=== PATIENT | female | born 1985 | race Hispanic/Latino ===

== ENCOUNTER 2016-11-15 13:10 | Emergency (ER) | payer OTHER ==
[~2016-11-15 13:10] MED LIST: CLEOCIN HCL300 MG PO; ENDOCET 325 MG-1 TA1 PO; ERYTHROMYCIN5 MG/GM OPH; IBUPROFEN800 MG PO; PERCOCET 325 MG1 TA2 PO; PRENATAL1 TA2 PO; [UNRECOGNIZED DRUG - REMARK] ED
[2016-11-15 13:51] VITALS: BP 115/64
== END 2016-11-15 14:30 | disposition admitted as inpatient to this hospital (09) ==
LOC: ERH 13:10
DX: R11.2 Nausea with vomiting, unspecified (principal); R19.7 Diarrhea, unspecified

== ENCOUNTER 2017-02-25 16:25 | Emergency (ER) | payer OTHER ==
[~2017-02-25] VITALS: Ht 167.6 cm; Wt 59.0 kg
[2017-02-25 16:57] LABS: ABSOLUTE BASOPHIL COUNT 0 /CUMM (0.0-0.2); ABSOLUTE EOSINOPHIL COUNT 0 /CUMM (0.0-0.7); ABSOLUTE GRANULOCYTE CT 5.5 /CUMM (1.4-6.5); ABSOLUTE LYMPH COUNT 1.3 /CUMM (1.2-3.4); ABSOLUTE MONOCYTE COUNT 0.5 /CUMM (0.10-0.60); BASOPHIL % 0.1 % (0.0-2.0); EOSINOPHIL % 0.6 % (0-5); GRANULOCYTE % 75.6 % (42.2-75.2); HEMATOCRIT 38.5 % (37-47); MEAN CORPUSCULAR HGB 29.4 PG (27.0-31.0); MEAN CORPUSCULAR HGB CONC 32.7 G/DL (33.0-37.0); MEAN PLATELET VOLUME 7.6 FL (7.4-10.4); PLATELET COUNT 191 /CUMM (130-400); RBC DISTRIBUTION WIDTH 13.8 % (11.5-14.5); RED BLOOD CELL CT 4.28 /CUMM (4.20-5.40); WHITE BLOOD CELL COUNT 7.3 /CUMM (4.8-10.8)
--- NOTE | 2017-02-25 17:44 | ED GI/GU/ABDOMINAL COMPLAINT ---
History of Present Illness General Chief Complaint: Abdominal Pain/Flank Pain Stated Complaint: ABD PAIN SINCE THIS AM Source: patient Exam Limitations: no limitations Vital Signs & Intake/Output Vital Signs & Intake/Output Vital Signs Date Time Temp Pulse Resp B/P Pulse O2 O2 Flow FiO2 Ox Delivery Rate 02/25 1830 70 18 122/55 98 Room Air 02/25 1634 98.3 92 18 115/62 99 Room Air Allergies Coded Allergies: cefazolin (HIVES 02/25/17) Reconcile Medications Ketorolac Tromethamine 10 MG TABLET 1 TAB PO TID PRN PAIN Multivitamin (Multi-Day Vitamins) 1 EACH TABLET 1 TAB PO DAILY SUPPLEMENT ( Reported) Ondansetron HCl (Zofran) 4 MG TABLET 1 TAB PO Q6-8P PRN NAUSEA Triage Note: COMPLAINS OF UPPER MID ABD PAIN SINCE THIS AM WITH NAUSEA. PAIN HAS BEEN CONSTANT. DENIES URINARY SYMPTOMS. COMPLAINS OF NAUSEA Triage Nurses Notes Reviewed? yes ? N Is pt currently ? No Onset: Abrupt Duration: waxing and waning Timing: single episode today Quality/Severity: sharpness, severe, stabbing Severity Numbers: 8 Location: left flank Radiation: back Activities at Onset: none HPI: Patient is a 32-year-old female with an unremarkable past medical history who presents emergency room stating that since this morning patient has been complaining of waxing and waning left-sided flank pain with radiation to her back. Patient hasn't taken any medications for symptoms. Patient has been able tolerate by mouth however is nauseous with no emesis. Denies any fever chills shortness of breath chest pain vaginal bleeding vaginal discharge dysuria hematuria. Last bowel movement was today no blood no melena noted. Denies any significant NSAID use or alcohol use ([place]) Past History Travel History Traveled to [place] past 21 day No Medical History Any Pertinent Medical History? 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 Psychosocial History What is your primary language Lithuanian Tobacco Use: Never used ETOH Use: denies use Illicit Drug Use: denies illicit drug use Family History Hx Contributory? No ([place]) Review of Systems Review of Systems Constitutional: Reports: no symptoms. EENTM: Reports: no symptoms. Respiratory: Reports: no symptoms. Cardiovascular: Reports: no symptoms. GI: Reports: see HPI, abdominal pain, nausea. Genitourinary: Reports: no symptoms. Musculoskeletal: Reports: see HPI, back pain. Skin: Reports: no symptoms. Neurological/Psychological: Reports: no symptoms. Hematologic/Endocrine: Reports: no symptoms. Immunologic/Allergic: Reports: no symptoms. All Other Systems: Reviewed and Negative ([place]) Physical Exam Physical Exam General Appearance: no apparent distress, alert, comfortable Gastrointestinal: normal bowel sounds, MILD LEFT FLANK POINT TENDERNESS Comments: Well-developed well-nourished person in no acute distress HEENT: Normal EENT exam, Neck: Supple, no lymphadenopathy, normal range of motion without pain or tenderness Back: Nontender, no CVA tenderness. Cardiovascular: Regular rate and rhythms no murmurs rubs or gallops, normal JVP Respiratory: Chest nontender. No respiratory distress.breath sounds clear to auscultation bilaterally Extremity: No edema, no calf tenderness to palpation, normal and equal pulses. Neuro: Alert oriented x3, motor sensory normal, Skin: No appreciable rash on exposed skin, skin is warm and dry. Psych: Mood and affect is normal, memory and judgment is normal. Core Measures ACS in differential dx? No Severe Sepsis Present: No Septic Shock Present: No ([place]) Progress Differential Diagnosis: AAA, AMI, appendicitis, biliary colic, bowel obstruction , colon cancer, cholecystitis, diverticulitis, ectopic , endometritis, esophageal varices, gastritis, hepatitis, hernia, hemorrhoids, ischemic bowel, inflamm bowel dis, intrauterine , kidney stone, Cecilia-Jaleesa tear, ovarian cyst, ovarian torsion, pancreatitis, PID/cervicitis, peptic ulcer, PUD/ GERD, perforated viscous, SBO, threatened AB, UTI/pyelo Plan of Care: Orders Procedure Date/time Status Add-on Test (ER Only) 02/25 1744 Active LIPASE 02/25 1645 Complete AMYLASE 02/25 1645 Complete URINE 02/25 1637 Complete URINALYSIS 02/25 1637 Complete COMPREHENSIVE METABOLIC PANEL 02/25 1637 Complete CBC WITHOUT DIFFERENTIAL 02/25 1637 Complete Laboratory Tests 02/25/17 1650: Urinalysis LIGHT H, Urine Color YEL, Urine Clarity HAZY H, Urine pH 6.0, Ur Specific [place] 1.025, Urine Protein NEG, Urine Ketones NEG, Urine Nitrite NEG, Urine Bilirubin NEG, Urine Urobilinogen 0.2, Ur Leukocyte Esterase NEG, Ur Microscopic SEDIMENT EXAMINED, Urine RBC RARE, Urine WBC 1-3 H, Ur Epithelial Cells MOD H, Urine Bacteria MOD H, Urine Mucus FEW, Urine Hemoglobin NEG, Urine Glucose NEG, Urine Test NEGATIVE 02/25/17 1645: Anion Gap 10, Estimated GFR > 60, BUN/Creatinine Ratio 20.0, Glucose 98, Calcium 9.1, Total Bilirubin 0.5, AST 21, ALT 32, Alkaline Phosphatase 65, Total Protein 6.9, Albumin 3.9, Globulin 3.0, Albumin/Globulin Ratio 1.3, Amylase 71, Lipase 83, CBC w Diff NO MAN DIFF REQ, RBC 4.28, MCV 90.0, MCH 29.4, RDW 13.8, MPV 7.6, Gran % 75.6 H, Lymphocytes % 17.4 L, Monocytes % 6.3, Eosinophils % 0.6, Basophils % 0.1, Absolute Granulocytes 5.5, Absolute Lymphocytes 1.3, Absolute Monocytes 0.5, Absolute Eosinophils 0, Absolute Basophils 0, PUBS MCHC 32.7 L Patient currently resting comfortably on her bed. Patient has unremarkable blood work urinalysis unremarkable CT scan shows only concerns of right ovarian adnexal cyst patient has no right lower quadrant pain. Patient was strongly advised to follow-up with GI if symptoms continue. Patient was able tolerate by mouth upon discharge patient looks well no apparent distress and will comply with discharge INSTRUCTIONS and had no questions (KYLE GONZALEZ,[place]) Diagnostic Imaging: Viewed by Me: CT Scan. Radiology Impression: no acute abnormality, no fracture Initial ED EKG: none Comments: PATIENT: FRANCISCO CARBONE PRESENT AGE: 32 PATIENT ACCOUNT NO: [id number] : 87 LOCATION: [facility] ORDERING PHYSICIAN: [place] GONZALEZ SERVICE DATE: 02/25/17 EXAM TYPE: CAT - CT ABD & PELVIS W/O IV CONTRAS EXAMINATION: CT ABDOMEN AND PELVIS WITHOUT CONTRAST CLINICAL INFORMATION: Left flank pain. COMPARISON: Pelvic ultrasound of 11/24/2013. TECHNIQUE: Multidetector volumetric imaging was performed from the superior aspect of the liver through the pubic symphysis. Sagittal and coronal reformatted images were obtained on the technologist's workstation. DLP: 252.83 mGy-cm. FINDINGS: LUNG BASES: The visualized lung bases are unremarkable. LIVER, GALLBLADDER, AND BILIARY TREE: The liver is normal in size, shape, and attenuation. No focal hepatic lesion or biliary ductal dilatation is present. The gallbladder is significantly contracted. PANCREAS: Unremarkable. SPLEEN: Unremarkable. ADRENAL GLANDS: Unremarkable. KIDNEYS AND URETERS: The kidneys are normal in size, shape, and attenuation. No hydronephrosis, hydroureter, or calculi seen. No perinephric stranding. BLADDER: Unremarkable. GASTROINTESTINAL TRACT: The small and large bowel are unremarkable. The appendix is unremarkable. ABDOMINAL WALL: No significant hernia is appreciated. Metallic nipple ring is in place. LYMPH NODES: No pathologically enlarged lymph nodes. VASCULAR: Unremarkable. PELVIC VISCERA: The uterus and left adnexa are unremarkable. There is a 2.5 cm hypodense right adnexal/ovarian lesion most likely representing a functional ovarian cyst in this young patient. Trace free fluid in the pelvis is likely physiologic. OSSEOUS STRUCTURES: Small sclerotic densities in the right femoral head and right acetabulum most probably represent bone islands. Otherwise, no suspicious or acute osseous abnormality. IMPRESSION: 1. No evidence of radiopaque urinary tract calculi or obstructive uropathy. 2. No acute or other significant abnormality is identified to explain patient's symptoms. 3. A 2.5 cm right adnexal/ovarian hypodense lesion likely represents a functional ovarian cyst. ([place]) Departure Departure Disposition: HOME OR SELF CARE Condition: Stable Clinical Impression Primary Impression: Abdominal pain Referrals: ANGEL ALANIZ APRN (PCP/Family) Additional Instructions: As discussed begin the prescription OF KETORALAC pain and inflammation, begin the prescription of Zofran for future nausea. If no better in 2 days follow-up with court crier Dr. SALAZAR. If symptoms worsen return to emergency room. PRESCRIPTIONS waiting at [facility] pharmacy. Begin a 24-hour clear liquid and bland diet to rest YOUR bowels Departure Forms: Customer Survey General Discharge Information Prescriptions: Current Visit Scripts Ketorolac Tromethamine 1 TAB PO TID PRN PAIN #15 TAB Ondansetron HCl (Zofran) 1 TAB PO Q6-8P PRN NAUSEA #15 TAB ([place]) PA/CARD CUTTER Co-Sign Statement Statement: ED Attending supervision documentation- [] I saw and evaluated the patient. I have also reviewed all the pertinent lab results and diagnostic results. I agree with the findings and the plan of care as documented in the PA's/CARD CUTTER's documentation. [X] I have reviewed the ED Record and agree with the PA's/CARD CUTTER's documentation. [] Additions or exceptions (if any) to the PAs/CARD CUTTER's note and plan are summarized below: [] (JUAN JOSE PEGUERO,MAURO Romero)
[2017-02-25] MEDS ORDERED: MULTI-DAY VITA1 EACH PO (18:06)
[2017-02-25 18:30] VITALS: BP 122/55
--- NOTE | 2017-02-25 18:42 | CT SCAN REPORT ---
EXAMINATION: CT ABDOMEN AND PELVIS WITHOUT CONTRAST CLINICAL INFORMATION: Left flank pain. COMPARISON: Pelvic ultrasound of 11/24/2013. TECHNIQUE: Multidetector volumetric imaging was performed from the superior aspect of the liver through the pubic symphysis. Sagittal and coronal reformatted images were obtained on the technologist's workstation. DLP: 252.83 mGy-cm. FINDINGS: LUNG BASES: The visualized lung bases are unremarkable. LIVER, GALLBLADDER, AND BILIARY TREE: The liver is normal in size, shape, and attenuation. No focal hepatic lesion or biliary ductal dilatation is present. The gallbladder is significantly contracted. PANCREAS: Unremarkable. SPLEEN: Unremarkable. ADRENAL GLANDS: Unremarkable. KIDNEYS AND URETERS: The kidneys are normal in size, shape, and attenuation. No hydronephrosis, hydroureter, or calculi seen. No perinephric stranding. BLADDER: Unremarkable. GASTROINTESTINAL TRACT: The small and large bowel are unremarkable. The appendix is unremarkable. ABDOMINAL WALL: No significant hernia is appreciated. Metallic nipple ring is in place. LYMPH NODES: No pathologically enlarged lymph nodes. VASCULAR: Unremarkable. PELVIC VISCERA: The uterus and left adnexa are unremarkable. There is a 2.5 cm hypodense right adnexal/ovarian lesion most likely representing a functional ovarian cyst in this young patient. Trace free fluid in the pelvis is likely physiologic. OSSEOUS STRUCTURES: Small sclerotic densities in the right femoral head and right acetabulum most probably represent bone islands. Otherwise, no suspicious or acute osseous abnormality. IMPRESSION: 1. No evidence of radiopaque urinary tract calculi or obstructive uropathy. 2. No acute or other significant abnormality is identified to explain patient's symptoms. 3. A 2.5 cm right adnexal/ovarian hypodense lesion likely represents a functional ovarian cyst.
[2017-02-25] MEDS ORDERED: KETOROLAC TROME10 M1 PO (18:52)
[2017-02-25] MEDS ORDERED: ZOFRAN4 M2 PO (18:52)
== END 2017-02-25 18:58 ==
LOC: ERH 16:25
PROVIDERS: Emergency Medicine
DX: R10.32 Left lower quadrant pain (principal)
CPT/HCPCS: 74176; 81001; 81025; 96372; J1885; J3101